=== PATIENT | male | born 1985 | race African-American/Black ===

== ENCOUNTER 2022-03-29 13:32 | Emergency (ER) | payer MEDICAID ==
[~2022-03-29] VITALS: Ht 165.1 cm; Wt 74.8 kg
[2022-03-29 13:45] VITALS: BP 133/81
--- NOTE | 2022-03-29 13:48 | NUR ---
PT TO LOBBY.
[2022-03-29 14:49] VITALS: BP 133/81
--- NOTE | 2022-03-29 14:49 | NUR ---
Patient discharged with v/s stable. Written and verbal after care instructions given and explained. Patient verbalized understanding. Ambulatory with steady gait. All questions addressed prior to discharge. Advised to follow up with PMD.
== END 2022-03-29 14:49 | disposition home or self-care (01) ==
LOC: MED 13:32
DX: M26.629 Arthralgia of temporomandibular joint, unspecified side (principal); F41.9 Anxiety disorder, unspecified; Z79.899 Other long term (current) drug therapy
CPT/HCPCS: 99281